=== PATIENT | female | born 1990 | race Two or more races ===

== ENCOUNTER 2018-07-19 20:00 | Emergency (ER) | payer OTHER ==
[~2018-07-19] VITALS: Ht 160 cm; Wt 54.4 kg
[2018-07-19 20:00] VITALS: BP 112/71
--- NOTE | 2018-07-19 20:28 | Emergency Room Report ---
History of Present Illness General Chief Complaint: Medical Clearance Source: Patient Present Illness HPI After getting consent from the patient, an inferior alveolar block was done using 1 mL of Marcaine. The patient tolerated procedure well. Regional anesthesia was achieved. Minimal blood loss. Allergies: Coded Allergies: No Known Allergies (Unverified , 07/19/18) Patient History Past Surgical History: none Pertinent Family History: none Social History: Reports: smoking, alcohol use Nursing Documentation-[facility] Past Medical History: No Stated History Review of Systems All Other Systems: negative except mentioned in HPI Physical Exam Vital Signs Date Time Temp Pulse Resp B/P (MAP) Pulse Ox O2 Delivery O2 Flow Rate FiO2 07/19/18 19:55 98.8 116 16 116/73 100 Room Air General Appearance: well appearing, no apparent distress ENT: hearing grossly normal, normal voice Neck: full range of motion, supple Respiratory: no respiratory distress, speaking full sentences Gastrointestinal: normal inspection, normal bowel sounds, non tender, soft Musculoskeletal: normal inspection, back normal, normal range of motion, no calf tenderness Neurologic: normal inspection, alert Medical Decision Making Diagnostic Impression: Primary Impression: Medical clearance for incarceration Last Vital Signs Date Time Temp Pulse Resp B/P (MAP) Pulse Ox O2 Delivery O2 Flow Rate FiO2 07/19/18 19:55 98.8 116 16 116/73 100 Room Air Status: unchanged Disposition: D/C TO [facility] IN [facility] Condition: Stable Scripts No Active Prescriptions or Reported Meds Departure Forms: Fpc Clearance Patient Instructions: Wrist Pain, [id number] ABDOULAYE ARCOS Jul 19, 2018 20:28
[2018-07-19 20:45] VITALS: BP 112/71
== END 2018-07-19 20:45 ==
LOC: EDBD 20:00 → EMR 20:26
DX: Z02.89 Encounter for other administrative examinations (principal)
CPT/HCPCS: 99283